=== PATIENT | female | born 1945 | race Caucasian/White ===

== ENCOUNTER 2022-10-30 14:54 | Emergency (ER) | payer MEDICARE ==
[~2022-10-30] VITALS: Ht 152.4 cm; Wt 70.0 kg
[~2022-10-30 14:54] MED LIST: CLOP75TA60 PO; FURO20 PO; HYDR25TA84 PO; LEVO75 PO; LOSA-382 PO; MECL-302 PO; POTA-92 PO
[2022-10-30 15:19] VITALS: TEMP 99.2
[2022-10-30] MEDS ORDERED: QUET25TA36 PO (15:22)
[2022-10-30] MEDS ORDERED: FURO20TA4 PO (15:22)
[2022-10-30 17:32] VITALS: BP 195/78; PULSE 67; RESP 18
[2022-10-30 18:03] LABS: BASOPHILS % (AUTO) 0.6 % (0.0-2.0); EOSINOPHILS % (AUTO) 2.8 % (1.0-6.0); HEMATOCRIT 37.2 % (36-46); HEMOGLOBIN 12.2 g/dL (12.0-16.0); LYMPHOCYTES # (AUTO) 2.6 K/uL (1.0-4.8); LYMPHOCYTES % (AUTO) 27.7 % (22.0-44.0); MEAN CORPUSCULAR HEMOGLOBIN 28.8 pg (26.0-34.0); MEAN CORPUSCULAR HGB CONC 32.9 G/dL (31.0-37.0); MEAN CORPUSCULAR VOLUME 88 fL (80-100); MONOCYTES # (AUTO) 0.6 K/uL (0.1-1.0); MONOCYTES % (AUTO) 6.8 % (2.0-9.0); NEUTROPHILS # (AUTO) 5.9 K/uL (1.8-7.7); NEUTROPHILS % (AUTO) 62.1 % (40.0-70.0); PLATELET COUNT (AUTO) 338 K/uL (150-450); RED BLOOD CELL COUNT(AUTO) 4.24 MIL/uL (4.00-5.20); RED CELL DISTRIBUTION WIDTH 14.6 % (11.5-14.5); WHITE BLOOD COUNT (AUTO) 9.5 K/uL (4.5-11.0)
[2022-10-30 18:16] LABS: D-DIMER 0.81 mg/L FEU (0.00-0.50); PROTHROMBIN TIME 10.8 SEC (9.4-11.6)
[2022-10-30 18:19] LABS: ANION GAP 7 mmol/L (8-16); CALCIUM, TOTAL 9.3 mg/dL (8.8-10.5); CARBON DIOXIDE 27 mmol/L (22-29); CHLORIDE 107 mmol/L (98-107); CREATININE 0.66 mg/dL (0.60-1.30); GLOMERULAR FILTR. RATE CALC > 60 mL/min (>60); GLUCOSE,RANDOM 93 mg/dL (70-110); POTASSIUM 4.6 mmol/L (3.5-5.1); SODIUM SERUM 141 mmol/L (136-145); UREA NITROGEN, BLOOD 11 mg/dL (7-18)
[2022-10-30 18:21] LABS: TROPONIN I-HIGH SENSITIVITY 6 ng/L (<51)
[2022-10-30 18:22] LABS: ALANINE AMINOTRANSFERASE 15 U/L (12-78); ALBUMIN 3.7 g/dL (3.4-5.0); ALKALINE PHOSPHATASE 88 U/L (46-116); ASPARTATE AMINOTRANSFERASE 15 U/L (15-37); BILIRUBIN,TOTAL 0.4 mg/dL (0.1-1.0); LIPASE 42 U/L (16-77); TOTAL PROTEIN, SERUM 7.5 g/dL (6.4-8.2)
[2022-10-30] MEDS ORDERED: IBUP-1554 PO (19:14)
[2022-10-30] MEDS ORDERED: ACET-2080 PO (19:14)
== END 2022-10-30 20:25 | disposition home or self-care (01) ==
LOC: EMS 20:25
DX: M79.605 Pain in left leg (principal); M17.0 Bilateral primary osteoarthritis of knee; Z86.73 Personal history of transient ischemic attack (TIA), and cerebral infarction without residual deficits
CPT/HCPCS: 80053; 83605; 83690; 84484; 85025; 85379; 85610; 93005; 93971; 99284